=== PATIENT | male | born 1990 | race Caucasian/White ===

== ENCOUNTER 2019-02-08 21:34 | Emergency (ER) | payer BC, OTHER ==
[~2019-02-08] VITALS: Ht 177.8 cm; Wt 74.8 kg
[2019-02-08] MEDS ORDERED: VENTOLIN HFA 1818 GM INH (21:57)
[2019-02-08 22:58] LABS: ABSOLUTE NEUTROPHILS 5.5 thou/uL (1.4-8.2); EOSINOPHILS 3.4 % (0.0-3.0); HEMOGLOBIN 15.9 gm/dL (14.0-18.0); LYMPHOCYTES 25.8 % (24.0-44.0); MCH 29.7 pg (26.0-34.0); MCHC 34.5 g/dL (28.0-37.0); MCV 86.1 fL (80.0-100.0); MONOCYTES 7.2 % (1.0-8.0); PLATELET COUNT 246 thou/uL (150-400); POLYS 62.6 % (36.0-66.0); RBC 5.34 mil/uL (4.50-6.00); WBC 8.8 thou/uL (4.0-11.0)
[2019-02-08 23:00] LABS: ANION GAP 10 mmol/L (7-16); BUN 13 mg/dL (7-18); CALCIUM 9.5 mg/dL (8.5-10.1); CHLORIDE 104 mmol/L (98-107); CO2 28 mmol/L (21-32); CREATININE 1.1 mg/dL (0.7-1.3); GLUCOSE 84 mg/dL (74-106); SODIUM 142 mmol/L (136-145)
[2019-02-08 23:09] LABS: MAGNESIUM 1.8 mg/dL (1.8-2.4); TROPONIN-I <0.06 ng/mL (<0.06)
[2019-02-08 23:46] VITALS: BP 110/56
--- NOTE | 2019-02-09 07:55 | EKG ---
[place] [address] [employer] [facility] [place] [address] ELECTROCARDIOGRAM REPORT Name: FALLON HERNANDEZ [id number] ������������������ Admission: 02/08/19 ������������������ Attend Phys: Discharge: ������������������ Date of : 89 Report #: [id number] ����������������������������������������������������������������� [id number] THIS REPORT FOR: //name// [facility] ED Test Date: 2019-02-08 Test Time: 21:39:53 Pat Name: FALLON HERNANDEZ Department: Room: Gender: General Surgery Physician Assistant: SHIRLEY : 1990 Requested By: Priya Dial Order Number: [id number] MD: Sunday Isaac Measurements Intervals [place] Rate: 78 P: -28 [place]: 154 QRS: 76 QRSD: 84 T: 53 QT: 352 QTc: 401 Interpretive Statements Sinus rhythm Normal tracing No previous ECG available for comparison Electronically Signed On 02-09-2019 7:55:22 CDT by Sunday Isaac [email or web address] ��������������������������������������������� <ELECTRONICALLY SIGNED> ���������������������������������������� By: Sunday Isaac MD, [facility] ��������������������������������������������� 02/09/19 [id number] Sunday Isaac MD, FACC /EPI
== END 2019-02-08 23:45 | disposition home or self-care (01) ==
LOC: ER 21:34
PROVIDERS: Emergency Medicine
DX: R07.89 Other chest pain (principal); R00.2 Palpitations